=== PATIENT | female | born 1935 | race Caucasian/White ===

== ENCOUNTER 2016-12-10 21:41 | Emergency (ER) | payer MEDICARE, BC ==
[2016-12-10 23:44] VITALS: BP 143/59
--- NOTE | 2016-12-10 23:49 | EDM.PDOC ---
<Suzette Javier Prabhu - Last Filed: 12/10/16 23:55> ED HPI GENERAL MEDICAL PROBLEM - General Chief Complaint: Neck Problem Stated Complaint: PAIN IN JAW Time Seen by Provider: 12/10/16 22:22 Source of Information: Reports: Patient History Limitations: Reports: No Limitations - History of Present Illness INITIAL COMMENTS - FREE TEXT/NARRATIVE: Moses presents maya with complaints of left lower jaw pain for two weeks. She reports the pain as a steady ache with radiation to the posterior part of her head. She states naproxen helps the pain a little bit. She has also tried use of acetaminophen with no positive results. Sara also reports cardiac stent placement 2 months ago. History of 4 stents. She denies change in breathing, SOB, chest pain, nausea, vomiting, fever or chills. Associated Symptoms: Reports: Headaches. 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 SPECIALIST: Reports: Acetaminophen, NSAIDS Left Neck Pain Score (Numeric/FACES): 6 - Related Data Allergies Allergy/AdvReac Type Severity Reaction Status Date / Time amoxicillin [Amoxicillin] Allergy Unknown Rash Verified 01/27/16 06:48 erythromycin base Allergy Unknown Rash Verified 01/27/16 06:48 [Erythromycin Base] Penicillins Allergy Unknown Rash Verified 01/27/16 06:48 sulfamethoxazole Allergy Rash Verified 01/27/16 06:48 [From Bactrim] trimethoprim [From Bactrim] Allergy Rash Verified 01/27/16 06:48 Home Meds: Home Meds Albuterol Sulfate [Proair Hfa] 1 - 2 puff IH Q4H PRN 04/26/13 [History] Aspirin 81 mg PO DAILY 04/26/13 [History] Calc/D3/Mag/Zn/Audio Video Mechanic/Ozzy/[place] [Calcium 600 MG Plus Vit D] 1 each PO DAILY [History] Calcitonin ([place]) [Miacalcin Nasal [place]] 1 spray NS DAILY 04/26/13 [History] Calcium Polycarbophil [Fibercon] 625 mg PO BID 04/26/13 [History] Lisinopril 2.5 mg PO BEDTIME 04/26/13 [History] Metoprolol Tartrate [Lopressor] 50 mg PO BID 04/26/13 [History] Multivitamin/Iron/Folic Acid [Centrum Complete Multivit] 1 each PO DAILY [History] Nitroglycerin 1 spray SL ASDIRECTED PRN 04/26/13 [History] [place]-3 Fatty Acids [[place]-3] 1,000 mg PO DAILY 04/26/13 [History] Magnesium Oxide 400 mg PO DAILY 06/24/13 [History] Rosuvastatin [Crestor] 10 mg PO DAILY 06/24/13 [History] amLODIPine [Norvasc] 10 mg PO DAILY 07/13/13 [History] Clopidogrel [Plavix] 75 mg PO DAILY 09/21/13 [History] Oxybutynin 5 mg PO DAILY 10/17/14 [History] Mometasone/Formoterol [[place] 200-5 MCG] 2 puff INH BID 06/29/15 [History] Ranolazine [Ranexa] 500 mg PO BID 06/29/15 [History] Pantoprazole Sodium [Protonix] 40 mg PO DAILY 12/10/16 [History] Past Medical History - Past Health History Medical/Surgical History: Denies Medical/Surgical History HEENT History: Reports: Allergic Rhinitis, Hard of Hearing, Impaired Vision Cardiovascular History: Reports: Bypass, CAD, High Cholesterol, [place], Stents Other Cardiovascular History: angiogram 02/04/2015. 3 stents. 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 Musculoskeletal History: Reports: Osteoporosis Endocrine/Metabolic History: Reports: Obesity/BMI 30+ - Infectious Disease History Infectious Disease History: Reports: Chicken Pox - Past Surgical History HEENT Surgical History: Reports: Cataract Surgery, Oral Surgery Cardiovascular Surgical History: Reports: Coronary Artery Bypass, Coronary Artery Stent GI Surgical History: Reports: Appendectomy, Cholecystectomy Female Surgical History: Reports: Breast Biopsy Oncologic Surgical History: Reports: Biopsy of Breast Social & Family History - Tobacco Use Smoking Status *Q: Never Smoker Years of Tobacco use: 30 Used Tobacco, but Quit: No Month Tobacco Last Used: 05/27/1989 Second Hand Smoke Exposure: No - Caffeine Use Caffeine Use: Reports: Coffee - Alcohol Use Days Per Week of Alcohol Use: 0 - Recreational Drug Use Recreational Drug Use: No ED ROS ENT - Review of Systems Review Of Systems: See Below Constitutional: Denies: Fever, Chills, Malaise, Night Sweats, Diaphoresis, Decreased Appetite HEENT: Reports: Dental Pain, Ear Pain, Hearing Loss, Other (Use of hearing aids) . Denies: Ear Discharge, Eye Discharge, Eye Pain, Nosebleed, Nose Pain, Sinus Problem, Throat Pain, Throat Swelling, Vertigo, Vision Change Respiratory: Denies: Shortness of Breath, Wheezing, Cough, Sputum, Hemoptysis Cardiovascular: Denies: Chest Pain, Blood Pressure Problem, Dyspnea on Exertion , Edema, Lightheadedness, Orthopnea, Palpitations, PND, Syncope Endocrine: Reports: No Symptoms GI/Abdominal: Reports: No Symptoms : Reports: No Symptoms Musculoskeletal: Denies: Neck Pain, Joint Pain, Joint Swelling, Muscle Pain, Muscle Stiffness Skin: Denies: Cyanosis, Mottled, Pallor, Bruising, Pruritis, Rash, Erythema, Wound, Lesions Neurological: Reports: Headache. Denies: Confusion, Dizziness, Numbness, Paresthesia, Syncope, Tingling, Weakness Psychiatric: Reports: No Symptoms Hematologic/Lymphatic: Reports: No Symptoms Immunologic: Reports: No Symptoms ED EXAM, ENT - Physical Exam Exam: See Below Text/Narrative:: Sara is an 81 year old female presenting to the ER with complaints of left lower jaw pain for two weeks. She has been evaluated in the clinic for jaw pain and was instructed to take tylenol. She does have a significant cardiac history. She recently obtained new lower dentures that were fitted to match her permanent lower implants (have been in place for 20 years). Positive history for osteoporosis. No fevers, chills. Exam Limited By: No Limitations General Appearance: Alert, WD/WN, No Apparent Distress Eye Exam: Bilateral Eye: EOMI, PERRL Ears: Normal External Exam, Normal Canal, Hearing Grossly Normal, Normal TMs, Other (Ringing in ears - unchanged from baseline. ) Nose: Normal Inspection, Normal Mucousa, No Blood Mouth/Throat: Normal Inspection, Normal Gums, Normal Lips, Normal Oropharynx, Other (Dentures in place, removed without difficulty, no lesions, sores exudate. No petichia. No pain with palpation. ). No: Gum Swelling, Lip Swelling, Lip Ulcers, Oral Ulcers, Tongue Swelling, Tonsillar Erythema, Tonsillar Exudates, Tonsillar Swelling, Uvular Edema Head: Atraumatic, Normocephalic. No: Facial Abrasions, Facial Ecchymosis, Facial Lacerations, Facial Swelling, Facial Tenderness, Sinus Tenderness Neck: Normal Inspection, Supple, Non-Tender, Full Range of Motion. No: Lymphadenopathy (R), Lymphadenopathy (L) Respiratory/Chest: No Respiratory Distress, Lungs Clear, Normal Breath Sounds, No Accessory Muscle Use, Chest Non-Tender Cardiovascular: Normal Peripheral Pulses, Regular Rate, Rhythm, No Edema, No Gallop, No Murmur GI/Abdominal: Normal Bowel Sounds, Soft, Non-Tender, No Distention, No Mass Back: Normal Inspection, Full Range of Motion. No: CVA Tenderness (R), CVA Tenderness (L) Extremities: Normal Inspection, Normal Range of Motion, Non-Tender, Normal Capillary Refill, Pedal Edema, Other (1+ pedal edema. ) Neurological: Alert, Oriented, CN II-XII Intact, Normal Cognition, Normal Gait, Normal Reflexes Psychiatric: Normal Affect, Normal Mood Skin: Warm, Dry, Intact, Normal Color, No Rash Lymphatic: No Adenopathy Course - Vital Signs Last Recorded V/S: Last Vital Signs Temp 96.2 F 12/10/16 23:43 Pulse 58 L 12/10/16 23:43 Resp 16 12/10/16 23:43 BP 143/59 H 12/10/16 23:43 Pulse Ox 97 12/10/16 23:43 - Orders/Labs/Meds Orders: Active Orders 24 hr Category Date Time Status EKG Documentation Completion [RC] ASDIRECTED Care 12/10/16 22:28 Active Max Facial Sinus wo Cont [CT] Stat Exams 12/10/16 23:22 Taken EKG 12 Lead [EK] Routine Ther 12/10/16 22:27 Ordered Labs: Laboratory Tests 12/10/16 12/10/16 Range/Units 22:59 22:59 WBC 6.6 (4.5-11.0) K/uL RBC 4.25 (3.30-5.50) M/uL Hgb 13.7 (12.0-15.0) g/dL Hct 39.7 (36.0-48.0) % MCV 93 (80-98) fL MCH 32 H (27-31) pg MCHC 35 (32-36) % Plt Count 243 (150-400) K/uL Neut % (Auto) 58 (36-66) % Lymph % (Auto) 29 (24-44) % [place] % (Auto) 12 H (2-6) % Eos % (Auto) 1 L (2-4) % Baso % (Auto) 1 (0-1) % Sodium 138 L (140-148) mmol/L Potassium 4.0 (3.6-5.2) mmol/L Chloride 103 (100-108) mmol/L Carbon Dioxide 27 (21-32) mmol/L Anion Gap 12.0 (5.0-14.0) mmol/L BUN 11 (7-18) mg/dL Creatinine 1.2 H (0.6-1.0) mg/dL Est Cr Clr Drug Dosing 28.21 mL/min Estimated GFR (MDRD) 43 L (>60) Glucose 103 (74-106) mg/dL Calcium 9.2 (8.5-10.1) mg/dL Total Bilirubin 0.5 (0.2-1.0) mg/dL AST 18 (15-37) U/L ALT 19 (12-78) U/L Alkaline Phosphatase 58 (46-116) U/L Troponin I < 0.017 (0.000-0.056) ng/mL C-Reactive Protein 0.02 (0.0-0.3) mg/dL Total Protein 7.0 (6.4-8.2) g/dL Albumin 3.6 (3.4-5.0) g/dL Globulin 3.4 (2.3-3.5) g/dL Albumin/Globulin Ratio 1.1 L (1.2-2.2) - Re-Assessments/Exams Free Text/Narrative Re-Assessment/Exam: 12/10/16 23:55 Patient care turned over to Dr. Pina, all his questions answered. Departure - Departure Disposition: Home, Self-Care 01 Clinical Impression: Jaw pain - Discharge Information Forms: ED Department Discharge Additional Instructions: Continue to use her regular medications, please follow-up. With your dentist within the next week for reevaluation <Ugo Pina - Last Filed: 12/11/16 00:15> Departure - Departure Time of Disposition: 00:15 Condition: Good - Assessment/Plan Plan: Assessment Acuity = acute Site and laterality = lower jaw pain, in a patient with known history coronary artery disease and dental implants Etiology = unclear etiology Manifestations = none Location of injury = Home Lab values = CBC within normal limits, sodium low at 138 consistent hyponatremia creatinine elevated at 1.2 consistent with chronic renal failure stage G IIIB troponin was negative, CRP negative EKG demonstrates a sinus rhythm no ST elevations or depressions CT scan shows no acute process Plan I did review lab work CT scan with her she is going to switch out her new dental implant for her old one and reevaluate she declined any pain medication she will follow-up with her dentist within the next week Patient was in agreement with the plan all questions were answered, they were instructed to return to the emergency department or call for worsening symptoms. This note was dictated using [employer] voice recognition software please call with any questions.
== END 2016-12-11 00:45 | disposition home or self-care (01) ==
LOC: JP.ED 21:41
DX: R68.84 Jaw pain (principal); I25.10 Atherosclerotic heart disease of native coronary artery without angina pectoris; E78.00 Pure hypercholesterolemia, unspecified; I25.2 Old myocardial infarction; J45.909 Unspecified asthma, uncomplicated; J44.9 Chronic obstructive pulmonary disease, unspecified; M81.0 Age-related osteoporosis without current pathological fracture; E66.9 Obesity, unspecified; Z79.82 Long term (current) use of aspirin; Z79.899 Other long term (current) drug therapy; Z88.2 Allergy status to sulfonamides; Z88.0 Allergy status to penicillin; Z88.1 Allergy status to other antibiotic agents; Z90.49 Acquired absence of other specified parts of digestive tract; Z98.890 Other specified postprocedural states; Z95.5 Presence of coronary angioplasty implant and graft
CPT/HCPCS: 36415; 70486; 80053; 84484; 85025; 86140; 93005; 93010; 99283; 99284-25

== ENCOUNTER 2020-08-15 03:15 | Emergency (ER) | payer MEDICARE, BC ==
[2020-08-15 03:23] VITALS: BP 145/75; PULSE 70
--- NOTE | 2020-08-15 03:45 | EDM.PDOC ---
ED HPI GENERAL MEDICAL PROBLEM - General Chief Complaint: Cardiovascular Problem Stated Complaint: ELBOW PAIN (BOTH) Time Seen by Provider: 08/15/20 03:39 Source of Information: Reports: Patient, Family, RN Notes Reviewed History Limitations: Reports: No Limitations - History of Present Illness INITIAL COMMENTS - FREE TEXT/NARRATIVE: 85-year-old female presents emergency department a complaint of bilateral elbow pain she has had some right-sided chest pain as well she does have extensive coronary artery disease history. No nausea no vomiting no shortness of breath no diaphoresis pain started about 4 hours prior bilateral elbows Pain Score (Numeric/FACES): 8 pain under right breast Pain Score (Numeric/FACES): 4 - Related Data Allergies Allergy/AdvReac Type Severity Reaction Status Date / Time amoxicillin [Amoxicillin] Allergy Unknown Rash Verified 08/15/20 03:17 erythromycin base Allergy Unknown Rash Verified 08/15/20 03:17 [Erythromycin Base] Penicillins Allergy Unknown Rash Verified 08/15/20 03:17 sulfamethoxazole Allergy Rash Verified 08/15/20 03:17 [From Bactrim] trimethoprim [From Bactrim] Allergy Rash Verified 08/15/20 03:17 Home Meds: Home Meds Calc/D3/Mag/Zn/Gricel/Ozzy/[place] [Calcium 600 MG Plus Vit D] 1 each PO DAILY 04/26/13 [History] Calcitonin ([place]) [Miacalcin Nasal [place]] 1 spray NS DAILY 04/26/13 [History] Lisinopril 2.5 mg PO BEDTIME 04/26/13 [History] Metoprolol Tartrate [Lopressor] 50 mg PO BID 04/26/13 [History] Nitroglycerin 1 spray SL ASDIRECTED PRN 04/26/13 [History] [place]-3 Fatty Acids [[place]-3] 1,000 mg PO DAILY 04/26/13 [History] calcium polycarbophiL [Fibercon] 625 mg PO BID 04/26/13 [History] Magnesium Oxide 400 mg PO DAILY 06/24/13 [History] amLODIPine [Norvasc] 10 mg PO DAILY 07/13/13 [History] Clopidogrel [Plavix] 75 mg PO DAILY 09/21/13 [History] Ranolazine [Ranexa] 1,000 mg PO BID 06/29/15 [History] Pantoprazole Sodium [Protonix] 40 mg PO DAILY 12/10/16 [History] Apixaban [Eliquis] 5 mg PO DAILY 12/21/17 [History] Docusate Sodium 1 tab PO DAILY 12/21/17 [History] Glucosam/Chondr/Collagn/Hyalur [Glucosamine & Chondroitin Cap] 1 cap PO DAILY 12/21/17 [History] Lutein/Min/Vit C/Vit E Acetate [Ocuvite Lutein] 1 cap PO DAILY 12/21/17 [History] Oxybutynin Chloride [Oxybutynin Chloride ER] 1 tab PO DAILY 12/21/17 [History] Potassium Chloride 10 meq PO DAILY 12/21/17 [History] Rosuvastatin Calcium 40 mg PO DAILY 12/21/17 [History] Past Medical History HEENT History: Reports: Allergic Rhinitis, Cataract, Hard of Hearing, Impaired Vision Cardiovascular History: Reports: Blood Clots/VTE/DVT, Bypass, CAD, High Cholesterol, [place], Stents Other Cardiovascular History: angiogram 02/04/2015. 8 stents. 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 Musculoskeletal History: Reports: Arthritis, Osteoporosis Endocrine/Metabolic History: Reports: Obesity/BMI 30+ Hematologic History: Reports: Anticoagulation Therapy Oncologic (Cancer) History: Reports: None - Infectious Disease History Infectious Disease History: Reports: Chicken Pox, Measles, Mumps - Past Surgical History HEENT Surgical History: Reports: Cataract Surgery, Oral Surgery Cardiovascular Surgical History: Reports: Coronary Artery Bypass, Coronary Artery Stent GI Surgical History: Reports: Appendectomy, Cholecystectomy Female Surgical History: Reports: Breast Biopsy Oncologic Surgical History: Reports: Biopsy of Breast Social & Family History - Tobacco Use Tobacco Use Status *Q: Never Tobacco User - Caffeine Use Caffeine Use: Reports: Coffee - Recreational Drug Use Recreational Drug Use: No ED ROS GENERAL - Review of Systems Review Of Systems: See Below Constitutional: Reports: No Symptoms HEENT: Reports: No Symptoms Respiratory: Reports: No Symptoms Cardiovascular: Reports: Chest Pain, Other (Also has bilateral elbow pain) GI/Abdominal: Reports: No Symptoms ED EXAM, GENERAL - Physical Exam Exam: See Below Exam Limited By: No Limitations General Appearance: Alert, WD/WN, No Apparent Distress Respiratory/Chest: No Respiratory Distress, Lungs Clear, Normal Breath Sounds, No Accessory Muscle Use, Chest Non-Tender Cardiovascular: Regular Rate, Rhythm, No Murmur GI/Abdominal: Soft, Non-Tender Course - Vital Signs Last Recorded V/S: Last Vital Signs Temp 97.1 F 08/15/20 03:19 Pulse 70 08/15/20 03:19 Resp 29 H 08/15/20 03:19 BP 145/75 H 08/15/20 03:19 Pulse Ox 98 08/15/20 03:19 - Orders/Labs/Meds Orders: Active Orders 24 hr Category Date Time Status Cardiac Monitoring [RC] .As Directed Care 08/15/20 03:43 Active EKG Documentation Completion [RC] ASDIRECTED Care 08/15/20 03:43 Active Chest 1V Frontal [CR] Stat Exams 08/15/20 03:43 Taken EKG 12 Lead [EK] Stat Ther 08/15/20 03:43 Ordered Labs: Laboratory Tests 08/15/20 08/15/20 Range/Units 03:55 03:55 WBC 4.9 (4.5-11.0) K/uL RBC 4.16 (3.30-5.50) M/uL Hgb 13.5 (12.0-15.0) g/dL Hct 38.7 (36.0-48.0) % MCV 93 (80-98) fL MCH 33 H (27-31) pg MCHC 35 (32-36) % Plt Count 181 (150-400) K/uL Neut % (Auto) 64 (36-66) % Lymph % (Auto) 23 L (24-44) % [place] % (Auto) 13 H (2-6) % Eos % (Auto) 1 L (2-4) % Baso % (Auto) 0 (0-1) % Sodium 135 L (140-148) mmol/L Potassium 3.9 (3.6-5.2) mmol/L Chloride 99 L (100-108) mmol/L Carbon Dioxide 21 (21-32) mmol/L Anion Gap 18.9 H (5.0-14.0) mmol/L BUN 16 (7-18) mg/dL Creatinine 0.9 (0.6-1.0) mg/dL Est Cr Clr Drug Dosing 33.42 mL/min Estimated GFR (MDRD) 60 (>60) Glucose 101 (74-106) mg/dL Calcium 8.9 (8.5-10.1) mg/dL Troponin I < 0.017 (0.000-0.056) ng/mL Departure - Departure Time of Disposition: : Disposition: Home, Self-Care 01 Condition: Fair Clinical Impression: Atypical chest pain Instructions: Nonspecific Chest Pain, Adult Referrals: Wicho Pastor MD [Primary Care Provider] - Forms: ED Department Discharge Additional Instructions: Use Tylenol or ibuprofen as needed for elbow pain, please followup with your primary care provider in 3-5 days if not better, please call return to the emergency department with worsening of symptoms. Sepsis Event Note (ED) - Evaluation Sepsis Screening Result: No Definite Risk - Focused Exam Vital Signs: Vital Signs Temp Pulse Resp BP Pulse Ox 08/15/20 03:19 97.1 F 70 29 H 145/75 H 98 08/15/20 03:18 97.1 F 70 29 H 145/75 H 98 - My Orders Last 24 Hours: My Active Orders 08/15/20 03:43 Cardiac Monitoring [RC] .As Directed EKG Documentation Completion [RC] ASDIRECTED Chest 1V Frontal [CR] Stat EKG 12 Lead [EK] Stat - Assessment/Plan Last 24 Hours: My Active Orders 08/15/20 03:43 Cardiac Monitoring [RC] .As Directed EKG Documentation Completion [RC] ASDIRECTED Chest 1V Frontal [CR] Stat EKG 12 Lead [EK] Stat Plan: Assessment Acuity = acute Site and laterality = atypical chest pain Etiology = unknown Manifestations = none Location of injury = Home Lab values = CBC, BMP, troponin all negative EKG demonstrates sinus rhythm there is no ST elevations or depressions appreciated, chest x-ray I did review films myself I cannot appreciate any acute process, the official read from radiology is pending Plan Did offer her some Toradol for her bilateral elbow pain she declined she is going to take some ibuprofen at home follow-up primary care in 3 to 5 days if not better This note was dictated using [employer] voice recognition software please call with any questions on syntax or grammar.
--- NOTE | 2020-08-15 08:55 | CR ---
CHEST: Portable 08/15/2020 at 4:06 AM CLINICAL HISTORY:Chest pain COMPARISON:2014 FINDINGS: The heart is enlarged. There has been previous sternotomy. There are atherosclerotic changes in the aorta.. There is some generalized interstitial prominence. This is greater on the left. Some of this is chronic. Impression: Cardiomegaly Mild interstitial prominence greater on the left. Some of this is chronic. Upright two-view chest is recommended when patient's condition allows.
== END 2020-08-15 04:45 | disposition home or self-care (01) ==
LOC: JP.ED 03:15
DX: R07.89 Other chest pain (principal); M25.522 Pain in left elbow; M25.521 Pain in right elbow; I25.10 Atherosclerotic heart disease of native coronary artery without angina pectoris; E78.00 Pure hypercholesterolemia, unspecified; I25.2 Old myocardial infarction; J44.9 Chronic obstructive pulmonary disease, unspecified; E66.9 Obesity, unspecified; Z68.37 Body mass index [BMI] 37.0-37.9, adult; Z79.01 Long term (current) use of anticoagulants; Z79.899 Other long term (current) drug therapy; Z79.02 Long term (current) use of antithrombotics/antiplatelets; Z88.0 Allergy status to penicillin; Z88.1 Allergy status to other antibiotic agents; Z88.2 Allergy status to sulfonamides
CPT/HCPCS: 36415; 71045; 71045-26; 80048; 84484; 85025; 93005; 99283; 99285-25

== ENCOUNTER 2021-10-25 17:02 | Emergency (ER) | payer MEDICARE, BC ==
[2021-10-25 19:44] VITALS: BP 130/50; PULSE 58
== END 2021-10-25 20:12 | disposition home or self-care (01) ==
LOC: JP.ED 17:02
DX: A08.4 Viral intestinal infection, unspecified (principal); E87.1 Hypo-osmolality and hyponatremia; J44.9 Chronic obstructive pulmonary disease, unspecified; I25.10 Atherosclerotic heart disease of native coronary artery without angina pectoris; E78.00 Pure hypercholesterolemia, unspecified; I25.2 Old myocardial infarction; Z95.5 Presence of coronary angioplasty implant and graft; Z95.1 Presence of aortocoronary bypass graft; Z88.0 Allergy status to penicillin; Z88.1 Allergy status to other antibiotic agents; Z79.899 Other long term (current) drug therapy
CPT/HCPCS: 36415; 80053; 82272; 85025; 85610; 85730; 99284

== ENCOUNTER 2024-07-12 10:05 | Emergency (ER) | payer MEDICARE, BC ==
[2024-07-12 10:19] LABS: BASOPHILS ABSOLUTE AUTO 0.04 K/uL (0.00-0.10); BASOPHILS PERCENT AUTO 0.6 % (0.1-1.3); EOSINOPHILS ABSOLUTE AUTO 0.07 K/uL (0.00-0.40); HEMATOCRIT 40.5 % (34.3-46.0); HEMOGLOBIN 14.4 g/dL (11.2-15.5); IMMATURE GRAN ABSOLUTE AUTO 0.04 K/uL (0.00-0.23); IMMATURE GRAN PERCENT AUTO 0.6 % (0.0-0.7); LYMPHOCYTES PERCENT AUTO 26.7 % (11.4-47.7); MEAN CORPUSCULAR HGB CONC 35.6 g/dL (31.6-35.5); MEAN CORPUSCULAR VOLUME 98.3 fL (81.4-99.0); MONOCYTES PERCENT AUTO 9.8 % (3.3-12.6); NEUTROPHILS ABSOLUTE AUTO 4.36 K/uL (1.0-7.6); NEUTROPHILS PERCENT AUTO 61.3 % (40.0-78.1); PLATELET COUNT,PLT 174 K/uL (130-375); RED BLOOD CELL COUNT 4.12 M/uL (3.77-5.24); WHITE BLOOD CELL COUNT,WBC 7.1 K/uL (3.2-11.0)
[2024-07-12] MEDS: Aspirin 81 MG Tab.Chew PO ONE (10:35)
[2024-07-12] MEDS: Morphine 2 MG/ML SYRINGE IVPUSH ONE (10:38)
[2024-07-12 10:49] LABS: A/G RATIO 1.1 (1.2-2.2); ALANINE AMINOTRANSFERASE,ALT 17 U/L (12-78); ALKALINE PHOSPHATASE 61 U/L (46-116); ASPARTATE AMNIOTRANSFERASE,AST 22 U/L (15-37); BILIRUBIN TOTAL 0.8 mg/dL (0.2-1.0); BLOOD UREA NITROGEN,BUN 17 mg/dL (7-18); CALCIUM 9.2 mg/dL (8.5-10.1); CARBON DIOXIDE,CO2 21 mmol/L (21-32); CHLORIDE,CL 98 mmol/L (100-108); EST CRCL DRUG DOSING (CG) 27.93 mL/min; ESTIMATED GFR 54 mL/min (>60); GLUCOSE RANDOM 103 mg/dL (74-106); POTASSIUM,K 4.3 mmol/L (3.6-5.2); PROTEIN TOTAL,TP 7.6 g/dL (6.4-8.2); SODIUM,NA 131 mmol/L (140-148); TROPONIN I HIGH SENSITIVITY 5.3 pg/mL (<=60.3)
[2024-07-12 10:50] LABS: ANION GAP 16.3 mmol/L (5.0-14.0)
[2024-07-12 12:35] VITALS: BP 135/61; PULSE 61
== END 2024-07-12 12:38 | disposition home or self-care (01) ==
LOC: JP.ED 10:05
DX: M25.522 Pain in left elbow (principal); M25.512 Pain in left shoulder; J18.9 Pneumonia, unspecified organism; I25.10 Atherosclerotic heart disease of native coronary artery without angina pectoris; I25.2 Old myocardial infarction; E78.00 Pure hypercholesterolemia, unspecified; J44.89 Other specified chronic obstructive pulmonary disease; Z88.0 Allergy status to penicillin; Z88.1 Allergy status to other antibiotic agents; Z88.2 Allergy status to sulfonamides; Z79.899 Other long term (current) drug therapy; Z79.01 Long term (current) use of anticoagulants; Z95.5 Presence of coronary angioplasty implant and graft
CPT/HCPCS: 36415; 71045; 73030; 73080; 80053; 83880; 84484; 85025; 85379; 93005; 93010; 96374; 99284; A9270; J2270

== ENCOUNTER 2025-01-07 20:38 | Emergency (ER) | payer MEDICARE, BC ==
[2025-01-07 20:56] LABS: BASOPHILS ABSOLUTE AUTO 0.04 K/uL (0.00-0.10); BASOPHILS PERCENT AUTO 0.5 % (0.1-1.3); EOSINOPHILS ABSOLUTE AUTO 0.08 K/uL (0.00-0.40); EOSINOPHILS PERCENT AUTO 1.0 % (0.0-5.4); IMMATURE GRAN ABSOLUTE AUTO 0.04 K/uL (0.00-0.23); IMMATURE GRAN PERCENT AUTO 0.5 % (0.0-0.7); LYMPHOCYTES ABSOLUTE AUTO 1.05 K/uL (0.8-3.3); LYMPHOCYTES PERCENT AUTO 12.7 % (11.4-47.7); MONOCYTES ABSOLUTE AUTO 0.88 K/uL (0.20-0.90); MONOCYTES PERCENT AUTO 10.6 % (3.3-12.6); NEUTROPHILS ABSOLUTE AUTO 6.18 K/uL (1.0-7.6); NEUTROPHILS PERCENT AUTO 74.7 % (40.0-78.1); PLATELET COUNT,PLT 193 K/uL (130-375); RED BLOOD CELL COUNT 3.49 M/uL (3.77-5.24); WHITE BLOOD CELL COUNT,WBC 8.3 K/uL (3.2-11.0)
[2025-01-07 21:06] VITALS: PULSE 61
[2025-01-07 21:06] LABS: BASE EXCESS ARTERIAL -2.4 mm/L; BICARBONATE,ARTERIAL 18.6 mmol/L (22.0-26.0); O2 SATURATION ARTERIAL 97.1 % (95.0-98.0); OXYHEMOGLOBIN 93.8 %; PCO2 ARTERIAL 23.1 mmHg (35.0-42.0); PO2 ARTERIAL 81.4 mmHg (75.0-100.0); TOTAL HEMOGLOBIN 12.8 g/dL (12.0-16.0)
[2025-01-07 21:21] LABS: A/G RATIO 0.9 (1.2-2.2); ALANINE AMINOTRANSFERASE,ALT 19 U/L (12-78); ASPARTATE AMNIOTRANSFERASE,AST 21 U/L (15-37); BILIRUBIN TOTAL 0.8 mg/dL (0.2-1.0); BLOOD UREA NITROGEN,BUN 10 mg/dL (7-18); CARBON DIOXIDE,CO2 20 mmol/L (21-32); CHLORIDE,CL 96 mmol/L (100-108); CREATININE 0.8 mg/dL (0.6-1.0); ESTIMATED GFR 71 mL/min (>60); GLUCOSE RANDOM 128 mg/dL (74-106); POTASSIUM,K 3.7 mmol/L (3.6-5.2); PROTEIN TOTAL,TP 6.9 g/dL (6.4-8.2); SODIUM,NA 128 mmol/L (140-148); TROPONIN I HIGH SENSITIVITY 6.2 pg/mL (<=60.3)
[2025-01-07 23:38] VITALS: BP 111/62
== END 2025-01-07 23:35 | disposition home or self-care (01) ==
LOC: JP.ED 20:38
DX: R07.89 Other chest pain (principal); I25.10 Atherosclerotic heart disease of native coronary artery without angina pectoris; E78.00 Pure hypercholesterolemia, unspecified; I25.2 Old myocardial infarction; J44.89 Other specified chronic obstructive pulmonary disease; Z95.5 Presence of coronary angioplasty implant and graft; Z88.0 Allergy status to penicillin; Z88.1 Allergy status to other antibiotic agents; Z88.2 Allergy status to sulfonamides; Z88.8 Allergy status to other drugs, medicaments and biological substances; Z79.899 Other long term (current) drug therapy; Z79.02 Long term (current) use of antithrombotics/antiplatelets
CPT/HCPCS: 36415; 36600; 71045; 71045-26; 80053; 82803; 84484; 85025; 93005; 93010; 99285